=== PATIENT | male | born 1945 | race Caucasian/White ===

== ENCOUNTER 2018-09-11 13:39 | Emergency (ER) | payer MEDICARE ==
[~2018-09-11] VITALS: Ht 175.3 cm; Wt 90.7 kg
[2018-09-11 13:39] VITALS: BP_SYST 122
[~2018-09-11 13:39] MED LIST: AMLO5TAB4 PO; ASPI-1153 PO; CARB-62 PO; LIP10 PO; LISI-600 PO; METO-442 PO; NORT10CA PO
[2018-09-11 14:19] LABS: BASOPHILS % (AUTO) 0.3 % (0.0-2.0); HEMATOCRIT 42.6 % (36-54); HEMOGLOBIN 13.6 g/dL (14.0-18.0); LYMPHOCYTES # (AUTO) 0.5 K/uL (1.0-5.5); LYMPHOCYTES % (AUTO) 4.2 % (20.5-51.5); MEAN CORPUSCULAR HEMOGLOBIN 28 pg (27-31); MEAN CORPUSCULAR HGB CONC 32 % (32-36); MEAN CORPUSCULAR VOLUME 88 fL (79.0-98.0); MONOCYTES # (AUTO) 0.6 K/uL (0.0-1.0); MONOCYTES % (AUTO) 4.9 % (1.7-9.3); NEUTROPHILS # (AUTO) 10.7 K/uL (1.8-7.7); NEUTROPHILS % (AUTO) 90.6 % (40.0-70.0); PLATELET COUNT (AUTO) 216 K/uL (130-430); RED BLOOD CELL COUNT(AUTO) 4.82 MIL/uL (4.2-6.2); RED CELL DISTRIBUTION WIDTH 14.6 % (9.0-15.0); WHITE BLOOD COUNT (AUTO) 11.8 K/uL (4.8-10.8)
[2018-09-11 14:38] LABS: ANION GAP 8 (5-15); CALCIUM 8.7 mg/dL (8.4-11.0); CHLORIDE 103 mmol/L (98-107); GLUCOSE 105 mg/dL (70-99); POTASSIUM 3.9 mmol/L (3.5-5.1); SODIUM SERUM 141 mmol/L (136-145); UREA NITROGEN, BLOOD 26 mg/dL (8-21)
[2018-09-11 14:45] LABS: ALBUMIN 3.2 g/dL (3.4-4.8); ASPARTATE AMINOTRANSFERASE 14 U/L (10-37); TOTAL BILIRUBIN 1.1 mg/dL (0.0-1.0)
[2018-09-11 14:46] LABS: INR 1.1 (0.80-1.20); PROTHROMBIN TIME 10.9 SECS (9.5-12.5)
[2018-09-11 15:02] LABS: ALANINE AMINOTRANSFERASE 6 U/L (12-78)
[2018-09-11 15:28] VITALS: BP_SYST 138
== END 2018-09-11 15:28 | disposition home or self-care (01) ==
LOC: SED 13:39
DX: G45.9 Transient cerebral ischemic attack, unspecified (principal); I10 Essential (primary) hypertension; Z86.79 Personal history of other diseases of the circulatory system; G20 Parkinson's disease; Z79.82 Long term (current) use of aspirin; Z79.899 Other long term (current) drug therapy
CPT/HCPCS: 36415; 70450-TC; 71045; 80053; 82550-TC; 84484; 85025; 85610-TC; 85730-TC; 93005; 99285

== ENCOUNTER 2018-11-24 17:36 | Emergency (ER) | payer MEDICARE ==
[~2018-11-24] VITALS: Ht 177.8 cm; Wt 90.7 kg
[2018-11-24 17:36] VITALS: BP_SYST 193
[2018-11-24] MEDS ORDERED: NACL 0.9% 1,000 ML IV ONE (19:15)
[2018-11-24 19:16] LABS: BASOPHILS # (AUTO) 0.1 K/uL (0.0-0.2); BASOPHILS % (AUTO) 0.5 % (0.0-2.0); HEMATOCRIT 38.7 % (36-54); HEMOGLOBIN 12.9 g/dL (14.0-18.0); LYMPHOCYTES # (AUTO) 0.5 K/uL (1.0-5.5); LYMPHOCYTES % (AUTO) 3.3 % (20.5-51.5); MEAN CORPUSCULAR HEMOGLOBIN 29 pg (27-31); MEAN CORPUSCULAR HGB CONC 33 % (32-36); MEAN CORPUSCULAR VOLUME 87 fL (79.0-98.0); MONOCYTES # (AUTO) 1.2 K/uL (0.0-1.0); MONOCYTES % (AUTO) 7.6 % (1.7-9.3); NEUTROPHILS # (AUTO) 13.8 K/uL (1.8-7.7); NEUTROPHILS % (AUTO) 88.6 % (40.0-70.0); PLATELET COUNT (AUTO) 191 K/uL (130-430); RED BLOOD CELL COUNT(AUTO) 4.47 MIL/uL (4.2-6.2); RED CELL DISTRIBUTION WIDTH 13.6 % (9.0-15.0); WHITE BLOOD COUNT (AUTO) 15.6 K/uL (4.8-10.8)
[2018-11-24 19:26] LABS: ANION GAP 5 (5-15); CALCIUM 8.4 mg/dL (8.4-11.0); CHLORIDE 108 mmol/L (98-107); CREATININE 0.77 mg/dL (0.55-1.30); GLUCOSE 108 mg/dL (70-99); POTASSIUM 3.5 mmol/L (3.5-5.1); SODIUM SERUM 139 mmol/L (136-145); UREA NITROGEN, BLOOD 19 mg/dL (8-21)
[2018-11-24 19:28] LABS: INR 1.1 (0.80-1.20); PROTHROMBIN TIME 10.9 SECS (9.5-12.5)
[2018-11-24 19:31] LABS: ALANINE AMINOTRANSFERASE 12 U/L (12-78); ALBUMIN 3.1 g/dL (3.4-4.8); ASPARTATE AMINOTRANSFERASE 15 U/L (10-37); TOTAL BILIRUBIN 0.7 mg/dL (0.0-1.0)
[2018-11-24] MEDS ORDERED: CEFU250T85 PO (19:41)
[2018-11-24] MEDS ORDERED: MELO15TA13 PO (19:41)
[2018-11-24] MEDS ORDERED: BENZ-16 PO (19:41)
[2018-11-24] MEDS ORDERED: TYC3 PO (19:41)
[2018-11-24] MEDS ORDERED: HYDR-3606 PO (19:41)
[2018-11-24] MEDS ORDERED: TRAM1TAB33 PO (19:41)
[2018-11-24] MEDS ORDERED: DONE10TA44 PO (19:41)
[2018-11-24] MEDS ORDERED: DOXY100C PO (19:41)
[2018-11-24] MEDS ORDERED: MIRT15TA7 PO (19:41)
[2018-11-24] MEDS ORDERED: TRAZ-123 PO (19:41)
[2018-11-24 19:56] LABS: BILIRUBIN,URINE NEGATIVE (NEGATIVE); BLOOD, URINE 3+ (NEGATIVE); CLARITY/URINE CLOUDY (CLEAR); COLOR,URINE YELLOW (YELLOW); GLUCOSE,URINE NEGATIVE (NEGATIVE); KETONES,URINE 1+ (NEGATIVE); LEUKOCYTE ESTERASE ,URINE NEGATIVE (NEGATIVE); NITRITE, URINE POSITIVE (NEGATIVE); PROTEIN URINE 1+ (NEGATIVE)
[2018-11-24 20:33] LABS: BACTERIA,URINE FEW /HPF (None Seen); RBC,URINE >100 /HPF (0-3)
[2018-11-24 20:34] LABS: MUCUS,URINE None Seen /LPF (None Seen); URINE AMORPHOUS URATE 3+ /HPF (None Seen)
[2018-11-24] MEDS ORDERED: NACL 0.9% 2,000 ML IV ONE ×2 (21:45→23:00)
[2018-11-24] MEDS ORDERED: cefTRIAXone 1 GM IVPB PREMIX 50 ML IV ONE (21:45)
[2018-11-25] MEDS ORDERED: ACETAMINOPHEN 500 MG TABLET PO ONE
[2018-11-25 04:02] VITALS: BP_SYST 132
== END 2018-11-25 03:45 | disposition short-term general hospital (02) ==
LOC: SED 17:36
DX: A41.9 Sepsis, unspecified organism (principal); N20.0 Calculus of kidney; K80.20 Calculus of gallbladder without cholecystitis without obstruction; I10 Essential (primary) hypertension; G20 Parkinson's disease; Z86.79 Personal history of other diseases of the circulatory system; Z79.899 Other long term (current) drug therapy
CPT/HCPCS: 36415; 71045; 74176; 76700; 80053; 81000; 83605; 84484; 85025; 85610; 85730; 87040; 87086; 93005; 96365; 99285; J0696; J7030; 87186-TC

== ENCOUNTER 2018-12-03 16:49 | Emergency (ER) | payer MEDICARE ==
[~2018-12-03] VITALS: Ht 177.8 cm; Wt 90.7 kg
[2018-12-03 16:49] VITALS: BP_SYST 201
[~2018-12-03 16:49] MED LIST changes: -AMLO5TAB4 PO; -ASPI-1153 PO; +BENZ-16 PO; -CARB-62 PO; +CEFU250T85 PO; +DONE10TA44 PO; +DOXY100C PO; +HYDR-3606 PO; -LIP10 PO; -LISI-600 PO; +MELO15TA13 PO; -METO-442 PO; +MIRT15TA7 PO; +TRAM1TAB33 PO; +TRAZ-123 PO; +TYC3 PO
[2018-12-03 17:50] VITALS: BP_SYST 198
== END 2018-12-03 17:50 | disposition home or self-care (01) ==
LOC: SED 16:49
DX: G20 Parkinson's disease (principal); M25.40 Effusion, unspecified joint; I10 Essential (primary) hypertension; Z86.79 Personal history of other diseases of the circulatory system; Z79.899 Other long term (current) drug therapy
CPT/HCPCS: 93005; 99283

== ENCOUNTER 2019-04-25 01:43 | Emergency (ER) | payer MEDICARE ==
[~2019-04-25] VITALS: Ht 170.2 cm; Wt 90.7 kg
[~2019-04-25 01:43] MED LIST changes: +TRAM-350 PO; -TRAM1TAB33 PO; -TRAZ-123 PO; +TRAZ-218 PO
[2019-04-25 01:47] VITALS: BP_SYST 159
[2019-04-25] MEDS ORDERED: NS 1000 ML IV.SOLN IV ONE (02:30)
[2019-04-25 02:53] LABS: MEAN CORPUSCULAR HEMOGLOBIN 29 pg (27-31); PLATELET COUNT (AUTO) 222 K/uL (130-430); RED CELL DISTRIBUTION WIDTH 14.4 % (9.0-15.0)
[2019-04-25 03:03] LABS: ANION GAP 7 (5-15); BASOPHILS % (AUTO) 0.4 % (0.0-2.0); CALCIUM 8.7 mg/dL (8.4-11.0); CHLORIDE 107 mmol/L (98-107); CREATININE 0.81 mg/dL (0.55-1.30); EOSINOPHILS # (AUTO) 0.1 K/uL (0.0-0.4); EOSINOPHILS % (AUTO) 0.5 % (0.0-4.0); GLUCOSE 92 mg/dL (70-99); HEMATOCRIT 38.8 % (36-54); HEMOGLOBIN 12.6 g/dL (14.0-18.0); LYMPHOCYTES # (AUTO) 1.5 K/uL (1.0-5.5); LYMPHOCYTES % (AUTO) 15.2 % (20.5-51.5); MEAN CORPUSCULAR HGB CONC 33 % (32-36); MEAN CORPUSCULAR VOLUME 88 fL (79.0-98.0); MONOCYTES % (AUTO) 10.3 % (1.7-9.3); NEUTROPHILS # (AUTO) 7.3 K/uL (1.8-7.7); NEUTROPHILS % (AUTO) 73.6 % (40.0-70.0); POTASSIUM 3.8 mmol/L (3.5-5.1); SODIUM SERUM 138 mmol/L (136-145); UREA NITROGEN, BLOOD 19 mg/dL (8-21)
[2019-04-25 03:04] LABS: PROTHROMBIN TIME 10.6 SECS (9.5-12.5)
[2019-04-25 03:08] LABS: ALANINE AMINOTRANSFERASE 21 U/L (12-78); ALBUMIN 3.1 g/dL (3.4-4.8); ASPARTATE AMINOTRANSFERASE 18 U/L (10-37); TOTAL BILIRUBIN 1.1 mg/dL (0.0-1.0)
[2019-04-25 03:44] LABS: BILIRUBIN,URINE NEGATIVE (NEGATIVE); BLOOD, URINE 3+ (NEGATIVE); CLARITY/URINE SL HAZY (CLEAR); COLOR,URINE YELLOW (YELLOW); GLUCOSE,URINE NEGATIVE (NEGATIVE); KETONES,URINE 1+ (NEGATIVE); LEUKOCYTE ESTERASE ,URINE TRACE (NEGATIVE); NITRITE, URINE POSITIVE (NEGATIVE); PROTEIN URINE NEGATIVE (NEGATIVE)
[2019-04-25 03:54] LABS: BACTERIA,URINE MANY /HPF (None Seen); RBC,URINE 20-50 /HPF (0-3)
[2019-04-25] MEDS ORDERED: cefTRIAXone 1 GM in D5W 50 ML IV ONE (04:00)
[2019-04-25] MEDS ORDERED: cefTRIAXone 1 GM IVPB PREMIX 50 ML IV ONE (04:37)
[2019-04-25 07:21] VITALS: BP_SYST 158
== END 2019-04-25 07:21 | disposition short-term general hospital (02) ==
LOC: SED 01:43
DX: N39.0 Urinary tract infection, site not specified (principal); L03.116 Cellulitis of left lower limb; L03.115 Cellulitis of right lower limb; G20 Parkinson's disease; I10 Essential (primary) hypertension; Z86.79 Personal history of other diseases of the circulatory system; Z79.899 Other long term (current) drug therapy
CPT/HCPCS: 36415; 51702; 71045; 80053; 81000; 83605; 84484; 85025; 85610; 87040; 87086; 87186; 93005; 96365; 99285; J0696; J7030; J7040

== ENCOUNTER 2019-07-08 19:27 | Emergency (ER) | payer MEDICARE ==
[~2019-07-08] VITALS: Ht 162.6 cm; Wt 74.8 kg
[2019-07-08 19:29] VITALS: BP_SYST 174
[2019-07-08 21:36] LABS: BASOPHILS % (AUTO) 0.4 % (0.0-2.0); EOSINOPHILS # (AUTO) 0.1 K/uL (0.0-0.4); EOSINOPHILS % (AUTO) 1.7 % (0.0-4.0); HEMATOCRIT 40.4 % (36-54); HEMOGLOBIN 12.9 g/dL (14.0-18.0); LYMPHOCYTES # (AUTO) 1.5 K/uL (1.0-5.5); LYMPHOCYTES % (AUTO) 20.4 % (20.5-51.5); MEAN CORPUSCULAR HEMOGLOBIN 29 pg (27-31); MEAN CORPUSCULAR HGB CONC 32 % (32-36); MEAN CORPUSCULAR VOLUME 90 fL (79.0-98.0); MONOCYTES # (AUTO) 0.7 K/uL (0.0-1.0); MONOCYTES % (AUTO) 9.2 % (1.7-9.3); NEUTROPHILS # (AUTO) 5.1 K/uL (1.8-7.7); NEUTROPHILS % (AUTO) 68.3 % (40.0-70.0); PLATELET COUNT (AUTO) 190 K/uL (130-430); RED BLOOD CELL COUNT(AUTO) 4.48 MIL/uL (4.2-6.2); RED CELL DISTRIBUTION WIDTH 15.2 % (9.0-15.0); WHITE BLOOD COUNT (AUTO) 7.4 K/uL (4.8-10.8)
[2019-07-08 21:42] LABS: ANION GAP 6 (5-15); CHLORIDE 109 mmol/L (98-107); CREATININE 0.98 mg/dL (0.55-1.30); GLUCOSE 91 mg/dL (70-99); POTASSIUM 4.4 mmol/L (3.5-5.1); SODIUM SERUM 145 mmol/L (136-145); UREA NITROGEN, BLOOD 33 mg/dL (8-21)
[2019-07-08 21:48] LABS: ALBUMIN 3.1 g/dL (3.4-4.8); ASPARTATE AMINOTRANSFERASE 19 U/L (10-37); TOTAL BILIRUBIN 0.4 mg/dL (0.0-1.0)
[2019-07-08 22:02] LABS: BILIRUBIN,URINE NEGATIVE (NEGATIVE); BLOOD, URINE NEGATIVE (NEGATIVE); COLOR,URINE YELLOW (YELLOW); GLUCOSE,URINE NEGATIVE (NEGATIVE); KETONES,URINE 1+ (NEGATIVE); LEUKOCYTE ESTERASE ,URINE 1+ (NEGATIVE); NITRITE, URINE POSITIVE (NEGATIVE); PROTEIN URINE NEGATIVE (NEGATIVE)
[2019-07-08 22:09] LABS: CLARITY/URINE HAZY (CLEAR)
[2019-07-08 22:11] LABS: BACTERIA,URINE MANY /HPF (None Seen); MUCUS,URINE None Seen /LPF (None Seen); RBC,URINE NONE SEEN /HPF (0-3)
[2019-07-08 22:17] LABS: ALANINE AMINOTRANSFERASE 6 U/L (12-78)
[2019-07-08] MEDS ORDERED: CEPHALEXIN 500 MG CAPSULE PO ONE (22:30)
[2019-07-09 01:29] VITALS: BP_SYST 180
== END 2019-07-09 01:10 | disposition home or self-care (01) ==
LOC: SED 19:27
DX: N39.0 Urinary tract infection, site not specified (principal); E03.9 Hypothyroidism, unspecified; I10 Essential (primary) hypertension; G20 Parkinson's disease; Z86.79 Personal history of other diseases of the circulatory system; Z79.899 Other long term (current) drug therapy
CPT/HCPCS: 36415; 70450-TC; 80053; 81000-TC; 85025; 87086; 87186-TC; 93005; 99284

== ENCOUNTER 2019-11-14 21:39 | Emergency (ER) | payer MEDICARE ==
[~2019-11-14] VITALS: Ht 172.7 cm; Wt 74.8 kg
[2019-11-14 21:39] VITALS: BP_SYST 179
[~2019-11-14 21:39] MED LIST changes: -HYDR-3606 PO; +HYDR-3607 PO; -TRAZ-218 PO; +TRAZ-250 PO
--- NOTE | 2019-11-14 22:02 | NUR ---
BIB BLS from [facility], placed to ER hallway 1. Pt s/p trip and fall while carrying a wooden object. Hematoma to left lateral orbit, abrasions to LHA and Left abdomen. -LOC, AAOx2 per baseline, hx Dementia.
--- NOTE | 2019-11-14 22:10 | NUR ---
Patient to ER bed H1 for evaluation. Side rails up.
--- NOTE | 2019-11-14 22:20 | NUR ---
ER Dr. Chao at bedside examining patient.
--- NOTE | 2019-11-14 23:30 | NUR ---
Pt is resting in bed, no acute distress noted at this time. Will continue to monitor.
--- NOTE | 2019-11-15 00:30 | NUR ---
Pt resting in bed, no acute distress noted at this time.
--- NOTE | 2019-11-15 01:32 | NUR ---
Patient given written and verbal discharge instructions and verbalizes understanding. ER MD discussed with patient the results and treatment provided. Patient in stable condition. ID arm band removed. Patient educated on pain management and to follow up with PMD. Pain Scale 0. Opportunity for questions provided and answered. Medication side effect fact sheet provided.
--- NOTE | 2019-11-15 01:35 | NUR ---
Report given to Tesha prior to patient's departure
[2019-11-15 01:39] VITALS: BP_SYST 147
== END 2019-11-15 01:29 | disposition home or self-care (01) ==
LOC: SED 21:39
DX: S00.83XA Contusion of other part of head, initial encounter (principal); I10 Essential (primary) hypertension; G20 Parkinson's disease; Z86.73 Personal history of transient ischemic attack (TIA), and cerebral infarction without residual deficits; Z79.899 Other long term (current) drug therapy; Z95.0 Presence of cardiac pacemaker; W01.0XXA Fall on same level from slipping, tripping and stumbling without subsequent striking against object, initial encounter; Y93.89 Activity, other specified; Y92.89 Other specified places as the place of occurrence of the external cause; Y99.8 Other external cause status
CPT/HCPCS: 70450-TC; 70486-TC; 99284

== ENCOUNTER 2019-12-19 10:20 | Emergency (ER) | payer MEDICARE ==
[~2019-12-19] VITALS: Ht 170.2 cm; Wt 72.6 kg
[2019-12-19 10:20] VITALS: BP_SYST 106
--- NOTE | 2019-12-19 10:20 | NUR ---
Placed in room 1. Placed on casting technician, blood pressure machine and pulse oximeter. To gown for exam. Side rails up. Report given to EMILY Doll.
--- NOTE | 2019-12-19 10:20 | NUR ---
Patient brought in by ambulance to the ED for generalized weakness and hypotension. Denied any chest pain or shortness of breath. Denied any fevers, nausea, vomiting, or chills. Patient is alert and oriented x2 and respirations even and unlabored. VSS, pain level 0/10. Informed of wait time. Instructed to notify ED staff for any changes in condition or worsening of symptoms. Patient verbalized understanding.
--- NOTE | 2019-12-19 10:20 | NUR ---
ER Dr. Chao at bedside examining patient.
[2019-12-19] MEDS ORDERED: NACL 0.9% 1,000 ML IV ONE ×2 (10:30→11:45)
--- NOTE | 2019-12-19 10:30 | NUR ---
# 20 gauge angiocath placed to LAC. Use of asceptic technique. Opsite placed over site. Blood return noted. Blood for lab drawn from site. Flushed with 10 cc of normal saline. No evidence of infiltration noted. Patient tolerated well.
--- NOTE | 2019-12-19 10:31 | NUR ---
ECG done as ordered by Dr. Chao. Patient tolerated the procedure well. Report given to
--- NOTE | 2019-12-19 10:45 | NUR ---
X-ray tech at bedside as ordered by Dr. Chao. Patient tolerated the procedure well.
[2019-12-19 11:04] LABS: BASOPHILS % (AUTO) 0.5 % (0.0-2.0); EOSINOPHILS # (AUTO) 0.1 K/uL (0.0-0.4); EOSINOPHILS % (AUTO) 0.8 % (0.0-4.0); HEMATOCRIT 36.2 % (36-54); HEMOGLOBIN 12.1 g/dL (14.0-18.0); LYMPHOCYTES # (AUTO) 0.9 K/uL (1.0-5.5); MEAN CORPUSCULAR HEMOGLOBIN 30 pg (27-31); MEAN CORPUSCULAR HGB CONC 33 % (32-36); MEAN CORPUSCULAR VOLUME 90 fL (79.0-98.0); MONOCYTES # (AUTO) 0.6 K/uL (0.0-1.0); MONOCYTES % (AUTO) 8.7 % (1.7-9.3); NEUTROPHILS # (AUTO) 5.5 K/uL (1.8-7.7); PLATELET COUNT (AUTO) 172 K/uL (130-430); RED BLOOD CELL COUNT(AUTO) 4.04 MIL/uL (4.2-6.2); RED CELL DISTRIBUTION WIDTH 15.2 % (9.0-15.0); WHITE BLOOD COUNT (AUTO) 7.2 K/uL (4.8-10.8)
--- NOTE | 2019-12-19 11:10 | NUR ---
# 16 FR In and Out catheter with use of sterile technique. Immediate return of 60 ml dark yellow urine noted. Urine sample collected and sent to lab. Pt tolerated procedure well. Patient unable to toilet self.
[2019-12-19 11:16] LABS: BILIRUBIN,URINE NEGATIVE (NEGATIVE); BLOOD, URINE 2+ (NEGATIVE); CLARITY/URINE CLEAR (CLEAR); COLOR,URINE YELLOW (YELLOW); GLUCOSE,URINE NEGATIVE (NEGATIVE); KETONES,URINE TRACE (NEGATIVE); LEUKOCYTE ESTERASE ,URINE NEGATIVE (NEGATIVE); NITRITE, URINE NEGATIVE (NEGATIVE); PROTEIN URINE TRACE (NEGATIVE)
[2019-12-19 11:22] LABS: ANION GAP 3 (5-15); CALCIUM 8.3 mg/dL (8.4-11.0); CHLORIDE 106 mmol/L (98-107); CREATININE 1.04 mg/dL (0.55-1.30); GLUCOSE 78 mg/dL (70-99); POTASSIUM 3.9 mmol/L (3.5-5.1); SODIUM SERUM 139 mmol/L (136-145); UREA NITROGEN, BLOOD 24 mg/dL (8-21)
[2019-12-19 11:23] LABS: PROTHROMBIN TIME 10.5 SECS (9.5-12.5)
[2019-12-19 11:34] LABS: ALANINE AMINOTRANSFERASE 11 U/L (12-78); ASPARTATE AMINOTRANSFERASE 16 U/L (10-37); TOTAL BILIRUBIN 0.7 mg/dL (0.0-1.0)
[2019-12-19 11:48] LABS: BACTERIA,URINE FEW /HPF (None Seen); RBC,URINE 50-80 /HPF (0-3); WBC,URINE 0-3 /HPF (0-3)
--- NOTE | 2019-12-19 12:20 | NUR ---
Patient taken to CT, in stable condition.
--- NOTE | 2019-12-19 12:37 | NUR ---
Patient is back from CT, in stable condition.
--- NOTE | 2019-12-19 17:07 | NUR ---
Patient given written and verbal discharge instructions and verbalizes understanding. ER MD discussed with patient the results and treatment provided. Patient in stable condition. ID arm band removed. No Rx given. Patient educated on pain management and to follow up with PMD. Pain Scale 0/10. Opportunity for questions provided and answered. Medication side effect fact sheet provided.
[2019-12-19 17:11] VITALS: BP_SYST 106
== END 2019-12-19 17:11 | disposition short-term general hospital (02) ==
LOC: SED 10:20
DX: E86.0 Dehydration (principal); R31.9 Hematuria, unspecified; I10 Essential (primary) hypertension; I25.10 Atherosclerotic heart disease of native coronary artery without angina pectoris; Z79.899 Other long term (current) drug therapy
CPT/HCPCS: 36415; 71045; 74176; 80053; 81000; 83605; 84484; 85025; 85610; 85730; 87040; 87086; 93005; 96360; 96361; 99285; J7030

== ENCOUNTER 2019-12-23 14:43 | Emergency (ER) | payer MEDICARE ==
[~2019-12-23] VITALS: Ht 170.2 cm; Wt 77.1 kg
--- NOTE | 2019-12-23 15:14 | NUR ---
Patient to ER bed h1 to gown for evaluation. Side rails up.
--- NOTE | 2019-12-23 15:30 | NUR ---
pt arrives from home w/ s/p fall from [place]. Neg KO. Pt denies any trauma or pain. educational manager placed.
[2019-12-23 15:40] VITALS: BP_SYST 123
--- NOTE | 2019-12-23 15:45 | NUR ---
ER at bedside examining patient.
--- NOTE | 2019-12-23 16:00 | NUR ---
Patient transported to radiology via gurney, accompanied by trading analyst.
--- NOTE | 2019-12-23 16:40 | NUR ---
pt returned from CT scan
--- NOTE | 2019-12-23 17:00 | NUR ---
pt will be returning back to [place]. Transportation being arranged
--- NOTE | 2019-12-23 18:28 | NUR ---
Spoke w/ Jane from [facility]. Informed Jane that pt will be returning to them.
[2019-12-23 19:20] VITALS: BP_SYST 180
--- NOTE | 2019-12-23 19:20 | NUR ---
Patient given written and verbal discharge instructions and verbalizes understanding. ER MD discussed with patient the results and treatment provided. Patient in stable condition. ID arm band removed. Patient educated on pain management and to follow up with PMD. Pain Scale 0/10. Opportunity for questions provided and answered. Medication side effect fact sheet provided.
== END 2019-12-23 19:20 | disposition home or self-care (01) ==
LOC: SED 14:43
DX: S00.83XA Contusion of other part of head, initial encounter (principal); I10 Essential (primary) hypertension; G20 Parkinson's disease; Z86.73 Personal history of transient ischemic attack (TIA), and cerebral infarction without residual deficits; Z79.899 Other long term (current) drug therapy; W18.39XA Other fall on same level, initial encounter; Y93.89 Activity, other specified; Y92.89 Other specified places as the place of occurrence of the external cause; Y99.8 Other external cause status
CPT/HCPCS: 70450-TC; 70486-TC; 99285

== ENCOUNTER 2019-12-31 18:38 | Emergency (ER) | payer MEDICARE ==
[~2019-12-31] VITALS: Ht 165.1 cm; Wt 68.0 kg
[2019-12-31 18:50] VITALS: BP_SYST 158
--- NOTE | 2019-12-31 18:51 | NUR ---
CALL PLACED TO [facility] FOR REPORT, SPOKE WITH KATHARINE COBIAN WAS THE NURSE FOR THE DAY AND SHE HAS LEFT. RECEIVED NO INFORMATION FROM FACILITY.
--- NOTE | 2019-12-31 18:53 | NUR ---
Patient triaged and placed on ems gurney. VSS and patient appears in no acute distress at this time. Accompanied by ems, awaiting available bed, and MD notified of need for MSE.
--- NOTE | 2019-12-31 19:30 | NUR ---
VSS no s/s of acute distress Resting on gurney rails up
--- NOTE | 2019-12-31 20:00 | NUR ---
Pt [facility] from facility to ED needing to be medically cleared
--- NOTE | 2019-12-31 21:14 | NUR ---
Dr. Souza bedside for pt eval
--- NOTE | 2019-12-31 21:30 | NUR ---
Pt report called to RYAN Frank at [facility].
--- NOTE | 2019-12-31 22:20 | NUR ---
In / Out cath performed bedside, well tolerated. Urine sample sent to lab as ordered
[2019-12-31 22:23] LABS: BILIRUBIN,URINE NEGATIVE (NEGATIVE); BLOOD, URINE NEGATIVE (NEGATIVE); CLARITY/URINE CLEAR (CLEAR); COLOR,URINE YELLOW (YELLOW); GLUCOSE,URINE NEGATIVE (NEGATIVE); KETONES,URINE NEGATIVE (NEGATIVE); LEUKOCYTE ESTERASE ,URINE NEGATIVE (NEGATIVE); NITRITE, URINE NEGATIVE (NEGATIVE); PROTEIN URINE NEGATIVE (NEGATIVE)
[2020-01-01] VITALS: BP_SYST 158
--- NOTE | 2020-01-01 | NUR ---
Patient given written and verbal discharge instructions and verbalizes understanding. ER MD discussed with patient the results and treatment provided. Patient in stable condition. ID arm band removed. Patient educated on pain management and to follow up with PMD. Pain Scale 0/10 Opportunity for questions provided and answered.
== END 2020-01-01 | disposition home or self-care (01) ==
LOC: SED 18:38
DX: F03.90 Unspecified dementia, unspecified severity, without behavioral disturbance, psychotic disturbance, mood disturbance, and anxiety (principal); I10 Essential (primary) hypertension; G20 Parkinson's disease; Z86.73 Personal history of transient ischemic attack (TIA), and cerebral infarction without residual deficits; Z79.899 Other long term (current) drug therapy
CPT/HCPCS: 81003; 99283